=== PATIENT | male | born 1945 | race Two or more races ===

== ENCOUNTER 2017-08-01 16:28 | Inpatient (IN) | payer OTHER, MEDICAID ==
[~2017-08-01] VITALS: Ht 182.9 cm; Wt 68.4 kg
[~2017-08-01 16:28] MED LIST: AML5T PO; BENA20TA14 PO; CARV25TA55 PO; INSLANTI SC
[2017-08-01] MEDS ORDERED: ACETAMINOPHEN 325 MG TAB PO ONE (16:45)
[2017-08-01] MEDS ORDERED: SODIUM CHLORIDE 0.9% 1,000 ML IV ONE ×2 (23:29)
[2017-08-01] MEDS ORDERED: metroNIDAZOLE 500MG/100ML 100 ML IV ONE (23:30)
[2017-08-01] MEDS ORDERED: PIPERACILLIN-TAZOB 3.375GM 100 ML IV ONE (23:30)
[2017-08-01 23:33] LABS: Hematocrit 29.8 % (41.0-53.0); Hemoglobin 9.8 g/dL (13.5-17.5); Mean Corpuscular Hemoglobin 30.7 pg (28.0-32.0); Mean Corpuscular Hgb Conc. 32.8 g/dL (32.0-36.0); Mean Corpuscular Volume 93.6 fL (80.0-100.0); Platelet Count (auto) 238 10^3/uL (140-450); Red Blood Cells 3.18 10^6/uL (4.5-5.90); Red Cell Distribution Width 15.1 % (11.8-14.3); White Blood Cell 26.8 10^3/uL (4.4-10.8)
[2017-08-01 23:39] LABS: Band Neutrophils % (manual) 0; Basophils % (manual) 0 (0.0-2.0); Blast Cells 0; Eosinophils % (manual) 0 (0-7); Metamyelocytes % 0; Myelocytes % 0; Promyelocytes % 0; Reactive Lymphocytes 0
[2017-08-01 23:47] LABS: Alanine Aminotransferase 39 U/L (16-61); Albumin 2.5 g/dL (3.4-5.0); Anion Gap 17 (5-15); Calcium 8.6 mg/dL (8.5-10.1); Carbon Dioxide 26 mmol/L (21-32); Chloride 93 mmol/L (98-107); Glucose 126 mg/dL (74-106); Magnesium 2.6 mg/dL (1.6-2.6); Potassium 4.2 mmol/L (3.5-5.1); Sodium 136 mmol/L (136-145)
[2017-08-01 23:49] LABS: Aspartate Aminotransferase 46 U/L (15-37); BUN/Creatinine Ratio 9.5; GFR African American 7 mL/min; GFR Non-African American 6 mL/min; Total Protein 8.3 g/dL (6.4-8.2)
[2017-08-01 23:57] LABS: Alkaline Phosphatase 137 U/L (45-117); Bilirubin, Total 0.5 mg/dL (0.2-1.0)
[2017-08-01 23:58] LABS: Blood Urea Nitrogen 88 mg/dL (7-18)
[2017-08-02 00:26] LABS: Urine Bacteria NONE SEEN /hpf (None Seen); Urine Blood 1+ /uL (Negative); Urine Specific Gravity 1.012 (1.001-1.035); Urine WBC 2 /hpf (0 - 3)
[2017-08-02 00:53] LABS: Lymphocytes % (manual) 9 (10.0-50.0); Monocytes % (manual) 5 (0-12)
[2017-08-02] MEDS ORDERED: ACETAMINOPHEN 325 MG TAB PO ONE (01:00)
[2017-08-02] MEDS ORDERED: DEXTROSE (50%) 50ML SYRG IV PRN (01:00)
[2017-08-02] MEDS ORDERED: ONDANSETRON HCL 4 MG/2 ML VIAL IV PRN (01:00)
[2017-08-02] MEDS ORDERED: VANCOMYCIN PER PHARMACY 0 MG IV SCH (01:00)
[2017-08-02] MEDS ORDERED: TEMAZEPAM 15 MG CAP PO PRN (01:00)
[2017-08-02] MEDS ORDERED: VANCOMYCIN 1GM/250ML 250 ML IV ONE ×2 (01:30→11:00)
[2017-08-02 01:45] VITALS: BP 130/59
[2017-08-02] MEDS ORDERED: ONDANSETRON HCL 4 MG/2 ML VIAL ONE (04:17)
[2017-08-02 05:00] VITALS: BP 120/63
[2017-08-02] MEDS: InsuLIN REG 1unit/0.01ml Soln (100units/ml) SC SCH ×4 (06:00→23:41)
[2017-08-02 06:32] LABS: Albumin 1.4 g/dL (3.4-5.0); BUN/Creatinine Ratio 10.6
[2017-08-02 06:34] LABS: Bilirubin, Total 0.3 mg/dL (0.2-1.0); Total Protein 4.7 g/dL (6.4-8.2)
[2017-08-02 06:42] LABS: Calcium 5.6 mg/dL (8.5-10.1); Potassium 2.4 mmol/L (3.5-5.1)
[2017-08-02] MEDS: ACCU-CHEK COMFORT CURVE STRIP VI SCH ×4 (06:50→23:41)
[2017-08-02] MEDS ORDERED: SODIUM CHLORIDE 0.9% 1,000 ML IV SCH (07:30)
[2017-08-02 08:00] VITALS: BP 118/60
[2017-08-02 08:44] LABS: Albumin 2.1 g/dL (3.4-5.0); BUN/Creatinine Ratio 10.5; Bilirubin, Total 0.6 mg/dL (0.2-1.0); Calcium 7.9 mg/dL (8.5-10.1); Potassium 3.5 mmol/L (3.5-5.1); Total Protein 7.2 g/dL (6.4-8.2)
[2017-08-02 09:00] VITALS: BP 118/60
[2017-08-02] MEDS: cefTRIAXone 1GM/50ML D5W 50 ML IV SCH (10:38)
[2017-08-02] MEDS: BENAZEPRIL HCL 10 MG TAB PO SCH (10:42)
[2017-08-02] MEDS: amLODIPine BESYLATE 5 MG TAB PO SCH (10:43)
[2017-08-02] MEDS: CARVEDILOL 12.5 MG TAB PO SCH ×2 (10:44→22:24)
[2017-08-02] MEDS: ENOXAPARIN SOD 30 MG/0.3 ML SYRINGE SC SCH (10:45)
[2017-08-02 13:00] VITALS: BP 122/42
[2017-08-02] MEDS: HYDROcodone-ACET 5/325MG TAB PO PRN (14:10)
[2017-08-02] MEDS ORDERED: SODIUM CHL 0.9% 1000 ML BAG XX ONE (14:45)
[2017-08-02 17:00] VITALS: BP 106/50
[2017-08-02] MEDS: ACETAMINOPHEN 325 MG TAB PO PRN (20:50)
[2017-08-03] VITALS (8 sets, daily range): BP systolic 111–153; BP diastolic 49–64
[2017-08-03] MEDS: InsuLIN REG 1unit/0.01ml Soln (100units/ml) SC SCH ×3 (05:50→18:08)
[2017-08-03] MEDS: ACCU-CHEK COMFORT CURVE STRIP VI SCH ×3 (05:51→18:02)
[2017-08-03 07:02] LABS: Basophils % (auto) 0.2 % (0.0-2.0); Hemoglobin 8.2 g/dL (13.5-17.5); Monocytes # (auto) 1.2 uL
[2017-08-03 07:05] LABS: Basophils # (auto) 0.1 uL; Eosinophils # (auto) 0 uL; Eosinophils % (auto) 0.2 % (0.0-7.0); Hematocrit 24.4 % (41.0-53.0); Lymphocytes # (auto) 1.1 uL; Lymphocytes % (auto) 5.1 % (10.0-50.0); Mean Corpuscular Hemoglobin 31.7 pg (28.0-32.0); Mean Corpuscular Hgb Conc. 33.6 g/dL (32.0-36.0); Mean Corpuscular Volume 94.2 fL (80.0-100.0); Monocytes % (auto) 5.6 % (0.0-12.0); Neutrophils # (auto) 19.2 uL; Neutrophils % (auto) 88.9 % (37.0-80.0); Platelet Count (auto) 209 10^3/uL (140-450); Red Blood Cells 2.59 10^6/uL (4.5-5.90); Red Cell Distribution Width 15.5 % (11.8-14.3); White Blood Cell 21.6 10^3/uL (4.4-10.8)
[2017-08-03 07:36] LABS: Albumin 1.9 g/dL (3.4-5.0); BUN/Creatinine Ratio 11.2; Bilirubin, Total 0.6 mg/dL (0.2-1.0); Calcium 7.5 mg/dL (8.5-10.1); Magnesium 2.6 mg/dL (1.6-2.6); Total Protein 6.7 g/dL (6.4-8.2)
[2017-08-03 07:42] LABS: INR 1.14 (0.9-1.15); Partial Thromboplastin Time 29.2 sec (22.64-33.71); Prothrombin Time 12.4 sec (9.37-12.3)
[2017-08-03] MEDS: HYDROcodone-ACET 5/325MG TAB PO PRN (09:15)
[2017-08-03] MEDS: amLODIPine BESYLATE 5 MG TAB PO SCH (10:00)
[2017-08-03] MEDS: CARVEDILOL 12.5 MG TAB PO SCH ×2 (10:00→22:53)
[2017-08-03] MEDS: BENAZEPRIL HCL 10 MG TAB PO SCH (10:00)
[2017-08-03] MEDS: cefTRIAXone 1GM/50ML D5W 50 ML IV SCH (11:37)
[2017-08-03] MEDS: ENOXAPARIN SOD 30 MG/0.3 ML SYRINGE SC SCH (11:38)
[2017-08-03] MEDS ORDERED: VANCOMYCIN 1GM/250ML 250 ML IV ONE (11:45)
[2017-08-03] MEDS ORDERED: EPOETIN ALFA 3,000 UNIT/1 ML VIAL IV ONE (12:00)
[2017-08-03] MEDS ORDERED: SODIUM CHL 0.9% 1000 ML BAG XX ONE (12:00)
[2017-08-03] MEDS ORDERED: EPOETIN ALFA 2,000 UNIT/1 ML VIAL IV ONE (12:00)
[2017-08-03] MEDS: ACETAMINOPHEN 325 MG TAB PO PRN (13:16)
[2017-08-04 05:27] VITALS: BP 137/68
[2017-08-04] MEDS: ACCU-CHEK COMFORT CURVE STRIP VI SCH ×4 (06:00→18:06)
[2017-08-04] MEDS: InsuLIN REG 1unit/0.01ml Soln (100units/ml) SC SCH ×4 (06:00→18:06)
[2017-08-04 06:03] LABS: Basophils # (auto) 0.1 uL; Basophils % (auto) 0.4 % (0.0-2.0); Eosinophils # (auto) 0 uL; Eosinophils % (auto) 0.2 % (0.0-7.0); Hemoglobin 9.2 g/dL (13.5-17.5); Lymphocytes % (auto) 5.2 % (10.0-50.0); Mean Corpuscular Hemoglobin 30.5 pg (28.0-32.0); Mean Corpuscular Hgb Conc. 32.8 g/dL (32.0-36.0); Monocytes # (auto) 1.2 uL; Monocytes % (auto) 6.3 % (0.0-12.0); Neutrophils # (auto) 16.4 uL; Neutrophils % (auto) 87.9 % (37.0-80.0); Platelet Count (auto) 269 10^3/uL (140-450); Red Blood Cells 3.01 10^6/uL (4.5-5.90); Red Cell Distribution Width 15.4 % (11.8-14.3); White Blood Cell 18.7 10^3/uL (4.4-10.8)
[2017-08-04 06:37] LABS: BUN/Creatinine Ratio 9.1; Potassium 3.7 mmol/L (3.5-5.1)
[2017-08-04] MEDS ORDERED: IODIXANOL 320MG/ML 100ML BTL IV ONE ×2 (07:41→08:35)
[2017-08-04] MEDS ORDERED: LIDOCAINE 2%HCL (LOCAL ANESTH.) INJ 20ML MDV ONE (07:41)
[2017-08-04 08:00] VITALS: BP 129/51
[2017-08-04] MEDS: CALCIUM ACETATE 667 MG CAP PO SCH ×3 (08:00→18:06)
[2017-08-04 08:53] VITALS: BP 129/59
[2017-08-04] MEDS ORDERED: ANGIOMAX 250 MG VIAL IV ONE (08:57)
[2017-08-04] MEDS ORDERED: MIDAZOLAM HCL 1MG/1ML-2 ML VIAL ONE (08:58)
[2017-08-04] MEDS ORDERED: SODIUM CHL 0.9% 50 ML ONE (08:58)
[2017-08-04] MEDS ORDERED: fentaNYL CITRATE 100 MCG/2 ML VL ONE (08:58)
[2017-08-04] MEDS: cefTRIAXone 1GM/50ML D5W 50 ML IV SCH (09:00)
[2017-08-04] MEDS: ENOXAPARIN SOD 30 MG/0.3 ML SYRINGE SC SCH (10:00)
[2017-08-04] MEDS: BENAZEPRIL HCL 10 MG TAB PO SCH (10:00)
[2017-08-04] MEDS: CARVEDILOL 12.5 MG TAB PO SCH ×2 (10:00→22:21)
[2017-08-04] MEDS: amLODIPine BESYLATE 5 MG TAB PO SCH (10:00)
[2017-08-04 13:00] VITALS: BP 123/54
[2017-08-04 16:37] VITALS: BP 140/64
[2017-08-04 22:00] VITALS: BP 144/60
[2017-08-05 04:32] VITALS: BP 144/55
[2017-08-05] MEDS: InsuLIN REG 1unit/0.01ml Soln (100units/ml) SC SCH ×4 (05:35→18:22)
[2017-08-05] MEDS: HYDROcodone-ACET 5/325MG TAB PO PRN ×2 (05:35→16:43)
[2017-08-05] MEDS: ACCU-CHEK COMFORT CURVE STRIP VI SCH ×4 (05:36→18:22)
[2017-08-05 06:19] LABS: Albumin 1.9 g/dL (3.4-5.0); BUN/Creatinine Ratio 8.7; Calcium 7.9 mg/dL (8.5-10.1)
[2017-08-05 06:21] LABS: Bilirubin, Total 0.6 mg/dL (0.2-1.0); Total Protein 7.2 g/dL (6.4-8.2)
[2017-08-05 08:00] VITALS: BP 142/57
[2017-08-05 09:00] VITALS: BP 142/57
[2017-08-05] MEDS: CALCIUM ACETATE 667 MG CAP PO SCH ×3 (09:00→18:21)
[2017-08-05] MEDS: cefTRIAXone 1GM/50ML D5W 50 ML IV SCH (09:00)
[2017-08-05] MEDS ORDERED: SODIUM CHL 0.9% 1000 ML BAG XX ONE (12:00)
[2017-08-05] MEDS ORDERED: EPOETIN ALFA 10,000 UNIT/1 ML VIAL IV ONE (12:00)
[2017-08-05 13:00] VITALS: BP 139/77
[2017-08-05] MEDS: CARVEDILOL 12.5 MG TAB PO SCH ×2 (13:58→23:15)
[2017-08-05] MEDS: amLODIPine BESYLATE 5 MG TAB PO SCH (13:58)
[2017-08-05] MEDS: BENAZEPRIL HCL 10 MG TAB PO SCH (13:59)
[2017-08-05] MEDS: ENOXAPARIN SOD 30 MG/0.3 ML SYRINGE SC SCH (13:59)
[2017-08-05 16:33] VITALS: BP 132/52
[2017-08-05 22:00] VITALS: BP 159/73
[2017-08-06] VITALS (8 sets, daily range): BP systolic 130–152; BP diastolic 56–82
[2017-08-06 05:56] LABS: Basophils # (auto) 0 uL; Basophils % (auto) 0.3 % (0.0-2.0); Eosinophils # (auto) 0.1 uL; Eosinophils % (auto) 0.8 % (0.0-7.0); Hematocrit 26.2 % (41.0-53.0); Hemoglobin 8.6 g/dL (13.5-17.5); Lymphocytes # (auto) 1.4 uL; Lymphocytes % (auto) 8.3 % (10.0-50.0); Mean Corpuscular Hemoglobin 30.7 pg (28.0-32.0); Mean Corpuscular Hgb Conc. 32.9 g/dL (32.0-36.0); Mean Corpuscular Volume 93.2 fL (80.0-100.0); Monocytes # (auto) 1.4 uL; Monocytes % (auto) 8.7 % (0.0-12.0); Neutrophils # (auto) 13.4 uL; Neutrophils % (auto) 81.9 % (37.0-80.0); Nucleated Red Blood Cells % 0.1 %; Platelet Count (auto) 284 10^3/uL (140-450); Red Blood Cells 2.82 10^6/uL (4.5-5.90); Red Cell Distribution Width 15.8 % (11.8-14.3); White Blood Cell 16.4 10^3/uL (4.4-10.8)
[2017-08-06] MEDS: ACCU-CHEK COMFORT CURVE STRIP VI SCH ×4 (06:00→18:08)
[2017-08-06] MEDS: InsuLIN REG 1unit/0.01ml Soln (100units/ml) SC SCH ×4 (06:00→18:00)
[2017-08-06 06:26] LABS: BUN/Creatinine Ratio 8.6; Calcium 7.9 mg/dL (8.5-10.1); Potassium 4.3 mmol/L (3.5-5.1)
[2017-08-06] MEDS: ACETAMINOPHEN 325 MG TAB PO PRN ×2 (07:46→14:24)
[2017-08-06] MEDS: CALCIUM ACETATE 667 MG CAP PO SCH ×3 (08:58→18:07)
[2017-08-06] MEDS: cefTRIAXone 1GM/50ML D5W 50 ML IV SCH (08:58)
[2017-08-06] MEDS: CARVEDILOL 12.5 MG TAB PO SCH (12:35)
[2017-08-06] MEDS: BENAZEPRIL HCL 10 MG TAB PO SCH (12:36)
[2017-08-06] MEDS: ENOXAPARIN SOD 30 MG/0.3 ML SYRINGE SC SCH (12:37)
[2017-08-06] MEDS: amLODIPine BESYLATE 5 MG TAB PO SCH (12:37)
[2017-08-07] MEDS: ACCU-CHEK COMFORT CURVE STRIP VI SCH ×4 (00:23→18:03)
[2017-08-07] MEDS: InsuLIN REG 1unit/0.01ml Soln (100units/ml) SC SCH ×4 (00:23→18:00)
[2017-08-07] MEDS: CARVEDILOL 12.5 MG TAB PO SCH ×3 (00:28→21:29)
[2017-08-07] MEDS: ACETAMINOPHEN 325 MG TAB PO PRN ×2 (00:28→23:51)
[2017-08-07 01:31] VITALS: BP 106/48
[2017-08-07 05:14] VITALS: BP 128/52
[2017-08-07 07:53] LABS: BUN/Creatinine Ratio 8.3; Bilirubin, Total 0.4 mg/dL (0.2-1.0); Calcium 8.4 mg/dL (8.5-10.1); Potassium 4.5 mmol/L (3.5-5.1); Total Protein 8.1 g/dL (6.4-8.2)
[2017-08-07] MEDS: amLODIPine BESYLATE 5 MG TAB PO SCH (09:05)
[2017-08-07] MEDS: cefTRIAXone 1GM/50ML D5W 50 ML IV SCH (09:05)
[2017-08-07] MEDS: CALCIUM ACETATE 667 MG CAP PO SCH ×3 (09:05→18:06)
[2017-08-07] MEDS: ENOXAPARIN SOD 30 MG/0.3 ML SYRINGE SC SCH (09:05)
[2017-08-07] MEDS: BENAZEPRIL HCL 10 MG TAB PO SCH (09:06)
[2017-08-07] MEDS ORDERED: SODIUM CHL 0.9% 1000 ML BAG XX ONE (18:15)
[2017-08-07] MEDS ORDERED: EPOETIN ALFA 10,000 UNIT/1 ML VIAL IV ONE (18:15)
[2017-08-07 20:00] VITALS: BP 145/60
[2017-08-07 20:30] VITALS: BP 145/60
[2017-08-08] MEDS: ACCU-CHEK COMFORT CURVE STRIP VI SCH (00:01)
[2017-08-08] MEDS: InsuLIN REG 1unit/0.01ml Soln (100units/ml) SC SCH (00:15)
== END 2017-08-08 01:00 | disposition short-term general hospital (02) | DRG 314 ==
LOC: ER 16:28 → EDUNIT# 16:28 → OVERFLOW 16:29 → EAST 08-02 01:45
PROVIDERS: ADMIT Nurse Practitioner; ATTEND Internal Medicine Geriatric Medicine
PROC: B41G1ZZ Fluoroscopy of Left Lower Extremity Arteries using Low Osmolar Contrast (ICD-10-PCS; principal; 2017-08-05)
PROC: B41F1ZZ Fluoroscopy of Right Lower Extremity Arteries using Low Osmolar Contrast (ICD-10-PCS; 2017-08-05)
DX: T82.856A Stenosis of peripheral vascular stent, initial encounter (principal); A41.9 Sepsis, unspecified organism; A48.0 Gas gangrene; E11.22 Type 2 diabetes mellitus with diabetic chronic kidney disease; E11.52 Type 2 diabetes mellitus with diabetic peripheral angiopathy with gangrene; I12.0 Hypertensive chronic kidney disease with stage 5 chronic kidney disease or end stage renal disease; L03.116 Cellulitis of left lower limb; N18.6 End stage renal disease; M86.9 Osteomyelitis, unspecified; M86.8X7 Other osteomyelitis, ankle and foot; J98.11 Atelectasis; E11.621 Type 2 diabetes mellitus with foot ulcer; L08.9 Local infection of the skin and subcutaneous tissue, unspecified; Z51.5 Encounter for palliative care; D64.9 Anemia, unspecified; E11.69 Type 2 diabetes mellitus with other specified complication; L97.529 Non-pressure chronic ulcer of other part of left foot with unspecified severity; Z79.4 Long term (current) use of insulin; Z99.2 Dependence on renal dialysis; Z89.611 Acquired absence of right leg above knee; Y83.8 Other surgical procedures as the cause of abnormal reaction of the patient, or of later complication, without mention of misadventure at the time of the procedure
CPT/HCPCS: 36415; 71010; 73700; 73718; 80048; 80053; 80202; 81001; 82962; 83605; 83735; 83880; 84484; 85007; 85025; 85027; 85610; 85730; 86850; 86860; 86870; 86880; 86900; 86901; 86905; 86906; 86970; 86971; 87040; 87077; 87081; 87186; 87205; 90935; 93005; 93926; 96365; 96367; 99152; 99153; C1769; C1887; J0696; J0885; J1642; J1815; J2250; J2405; J2543; J3490; Q4081; Q9967